=== PATIENT | male | born 1980 | race Caucasian/White ===

== ENCOUNTER 2016-04-22 09:08 | Emergency (ER) | payer BC, OTHER ==
[2016-04-22 09:22] VITALS: TEMP 97.5; BMI 36.7
[2016-04-22] MEDS ORDERED: ASPIRIN (CHEWABLE) 81 MG TAB PO ONE (11:08)
--- NOTE | 2016-04-22 11:08 | EDPRACDOC ---
- General Information Chief Complaint: Chest Pain Stated Complaint: CHEST PAIN Time Seen by Provider: 04/22/16 10:25 Information Source: Patient Mode of Arrival: Car Home Medications: Home Medications No Home Medications 04/22/16 Allergies/Adverse Reactions: Allergies Allergy/AdvReac Type Severity Reaction Status Date / Time No Known Allergies Allergy Verified 04/22/16 09:22 - History of Present Illness Onset: 0500 HPI: PT WOKE UP THIS AM AND HAD CHEST PRESSURE, CURRENTLY 3/10. PAIN WORSE WITH EXERTION. NO SOB. NONSMOKER. GRANDFATHER [place]. MILD NAUSEA WITH THE PAIN. PT DOES REPORT CHEST PAIN OFF AND ON FOR MONTHS, WORSE TODAY. ED Past Medical History - History Reviewed Yes Nurses notes reviewed and agree except as marked - Patient Medical History GI/ History: Reports: Gastroesophageal Reflux, Ulcer Musculoskeletal History: Reports: Arthritis Psychological History: Denies: Depression Systemic History: Denies: Anemia - Family Medical History Denies: Hypertension, Diabetes, Cancer, Stroke, Cardiac Disorders - Social Medical History Smoking Status: Never smoker EDM Review of Systems - Review of Systems ROS Negative Except as Marked: Yes All systems reviewed and were negative except as marked Constitutional: No Symptoms Reported Respiratory: No Symptoms Reported Gastrointestinal: No Symptoms Reported Genitourinary: No Symptoms Reported - Physical Exam Constitutional: Alert (Awake), No apparent distress Oriented to: Time, Person, Place Last recorded Vital Signs: Last Vital Signs Temp 97.5 F 04/22/16 09:20 Pulse 74 04/22/16 09:20 Resp 18 04/22/16 09:20 BP 137/87 04/22/16 09:20 Pulse Ox 99 04/22/16 09:20 Oxygen Pulse Oxygen Saturation 99 O2 Device Room Air Oxygen Flow Rate Fraction of Inspired Oxygen ( FIO2) - HEENT Head: Normal ( normocephalic) Eye Exam: Normal (PERRL, EOMI, Sclera white) Oropharynx: Normal (Pharynx:Moist without exudate,Gums-no swelling) Nose: No Symptoms Reported (septum midline) Neck: Normal (FROM, trachea at midline) - Respiratory/Cardiovascular Respiratory: Normal - CTA (BBS clear to auscultation without adventitious sounds ) Cardiovascular: Normal (RRR without murmur, gallop or rub) - GI Auscultation: Normal (NABS) Palpation: Normal (Soft,No rebound or guarding, non distended) Tenderness: Non tender Keita's Sign: Negative - Musculoskeletal Back: Normal (Non-Tender) Extremities: Normal (Normal tone, Pulses 2+ No cyanosis or edema, FROM) - Integumentary Skin: Normal, Warm, Dry Lymphatics: Normal (no adenopathy) - Neurologic Memory Impaired: Normal Motor Function: Normal (Normal tone, Pulses 2+ No cyanosis or edema, FROM) Cranial Nerve: Normal (CN II-X11 intact sensation, strength 5/5) Cerebellar: Normal Mood Description: Normal Perception: Normal - Action ASA given in the ED: Yes - Results 04/22/16 10:30 04/22/16 10:30 - EKG EKG #1 EKG Time: 09:13 -: Yes EKG interpreted by me Rate: bpm: 68 Paulina: Normal Rhythm: NSR Block: None Hypertrophy: None ST: Normal Comments: NORMAL EKG Decision Time to Discharge: 12:50 - Departure Yes I personally saw and evaluated the patient. Disposition: Home Condition: Stable Final Diagnosis: Chest pain Instructions: Chest Pain (ED) Education/Counseling Given To: Patient Education/Counseling Given Regarding: Diagnosis Referrals: Melody Mcleod MD [Primary Care Provider] - One Week Prescriptions: No Action No Home Medications 0 NA DIR #0 info Additional Instructions: MOTRIN/TYLENOL.
[2016-04-22 11:21] LABS: AUTOMATED BASOPHIL 0.3 % (0-2); AUTOMATED EOSINOPHIL 3.3 % (0-5); AUTOMATED LYMPH 15.7 % (17-44); AUTOMATED MONOCYTE 6.3 % (3-10); AUTOMATED NEUTROPHIL 74.4 % (45-76); MPV 9.3 fL (7.4-10.4)
--- NOTE | 2016-04-22 11:31 | DIRPT ---
CLINICAL DATA: Left chest pain EXAM: PORTABLE CHEST - 1 VIEW COMPARISON: CT 01/05/2010 FINDINGS: Lungs are clear. Heart size and mediastinal contours are within normal limits. No effusion. No pneumothorax. Visualized skeletal structures are unremarkable. IMPRESSION: No acute cardiopulmonary disease. Electronically Signed By: Juana Ivory M.D. On: 04/22/2016 11:28
[2016-04-22 11:36] LABS: PARTIAL THROMB. TIME 28.6 SEC (22-35)
[2016-04-22 11:37] LABS: BLOOD UREA NITROGEN 18 MG/DL (9-20); CALCIUM 9.5 MG/DL (8.4-10.2); CALCULATED OSMOLALITY 275 MOs/Kg (270-290); CHLORIDE 105 mEq/L (98-107); GLUCOSE 98 mg/dL (70-99); SODIUM LEVEL 142 mEq/L (137-146); TOTAL PROTEIN 7.7 G/DL (6.3-8.2)
[2016-04-22 13:23] VITALS: BP 130/74; PULSE 72
== END 2016-04-22 13:22 | disposition home or self-care (01) ==
LOC: ED 09:08
DX: R07.9 Chest pain, unspecified (principal)
CPT/HCPCS: 36415; 71010; 80053; 84484; 85025; 85610; 85730; 93005; 99284; J3490